=== PATIENT | male | born 1970 | race African-American/Black ===

== ENCOUNTER 2018-09-13 10:37 | Emergency (ER) | payer MEDICAID ==
[~2018-09-13] VITALS: Ht 188 cm; Wt 127.0 kg
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
[2018-09-13] MEDS ORDERED: NKM (10:38)
[2018-09-13 10:39] VITALS: BP 141/95
[2018-09-13] MEDS ORDERED: UNOBMED (10:44)
--- NOTE | 2018-09-13 10:57 | NUR ---
ED Nurse Note: [employer] at the bedside.
[2018-09-13] MEDS ORDERED: Morphine Sulfate 2mg/ml Inj(IV/IM USE ONLY) IM ONE (11:00)
[2018-09-13] MEDS ORDERED: Tetanus/Diptheria/Pertussis IM ONE (11:00)
--- NOTE | 2018-09-13 11:15 | NUR ---
ED Nurse Note: Pt went down to CT.
--- NOTE | 2018-09-13 11:29 | NUR ---
ED Nurse Note: Pt back from CT.
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
[2018-09-13] MEDS ORDERED: BACITRACIN15 GM TOPIC (12:46)
[2018-09-13] MEDS ORDERED: IBUPROFEN600 MG ORAL (12:46)
[2018-09-13 12:56] VITALS: BP 140/94
--- NOTE | 2018-09-13 12:57 | NUR ---
ER DISCHARGE NOTE: Patient is cleared to be discharged per ERMD, pt is aox4, on room air, with stable vital signs. pt was given dc and prescription instructions, pt was able to verbalize understanding, pt id band removed without complications. pt is able to ambulate with steady gait. pt took all belongings.
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
== END 2018-09-13 12:57 | disposition home or self-care (01) ==
LOC: EDBD 10:37 → EMR 11:05
DX: S02.2XXA Fracture of nasal bones, initial encounter for closed fracture (principal); I10 Essential (primary) hypertension; Y04.2XXA Assault by strike against or bumped into by another person, initial encounter; Z23 Encounter for immunization
CPT/HCPCS: 70450; 70486; 90471; 90715; 96372; 99284; J2270